=== PATIENT | female | born 1950 | race Caucasian/White ===

== ENCOUNTER 2019-01-31 19:07 | Inpatient (IN) ==
[2019-01-31] MEDS ORDERED: DILTIAZEM 100 MG VIAL.ADD IV STA (19:33)
[2019-01-31] MEDS ORDERED: methylPREDNISolone SOD SUC 125 MG/2 ML VIAL IV STA (19:35)
[2019-01-31] MEDS ORDERED: FUROSEMIDE 100 MG/10 ML VIAL IV STA (19:35)
[2019-01-31] MEDS ORDERED: NITROGLYCERIN 2% OINT 1 INCH/GM PACK TOP STA (19:35)
[2019-01-31] MEDS ORDERED: PIPERACILLIN/TAZOBACTAM 3,375 MG in SODIUM CHLORIDE 0.9% 100 ML IV STA (19:35)
[2019-01-31] MEDS ORDERED: DILTIAZEM 25 MG/5 ML VIAL IV ONE (19:43)
[2019-01-31] MEDS ORDERED: FUROSEMIDE 40 MG/4 ML VIAL ONE (19:48)
[2019-01-31] MEDS ORDERED: FUROSEMIDE 20 MG/2 ML VIAL ONE (19:48)
[2019-01-31 19:55] LABS: Basophils % 0.1 % (0.0-0.8); Hemoglobin 10.9 GM/DL (12.0-16.0); Immature Granulocytes % 4.7 %; Immature Granulocytes Absolute 1.95 #; Lymphocytes # 0.8 10*3/uL (1.4-4.0); Mean Corpuscular HGB Conc 30.3 GM/DL (32-36); Mean Platelet Volume 11.2 FL (9.6-12.0); Monocytes % 4.3 % (1.7-12.7); NRBC # 0.02 10*3/uL; Neutrophils % 88.9 % (38.7-73.9); Platelet Count 358 T/CUMM (130-400); Red Blood Count 3.87 MC/CUMM (3.8-5.5); Red Cell Distribution Width 13.7 % (9.3-17.3)
[2019-01-31 20:00] LABS: White Blood Count 41.3 T/CUMM (4-12)
[2019-01-31] MEDS ORDERED: DILTIAZEM 100 MG VIAL.ADD IV SCH (20:00)
[2019-01-31] MEDS ORDERED: ALBUTEROL NEB SOLN 5 MG/ML 20 ML/BOTTLE RESP TX SCH (20:00)
[2019-01-31] MEDS ORDERED: dilTIAZem Drip 125 MG/125 ML PREMIX IV SCH (20:00)
[2019-01-31 20:04] LABS: INR 1.1; PT Patient Result 11.8 SECS
[2019-01-31 20:20] LABS: Alanine Aminotransferase 14 U/L (13-56); Alkaline Phosphatase 136 U/L (45-117); Aspartate Amino Transferase 16 U/L (0-37); Blood Urea Nitrogen 56 MG/DL (7-18); Osmolality,Calculated 318.8 MOS/KG (273-304); Thyroid Stimulating Hormone 0.598 uIU/ml (0.358-3.74); Total Protein 6.4 G/DL (6.4-8.3); Troponin I < 0.015 NG/ML (0.00-0.045)
[2019-01-31 20:23] LABS: Glucose 647 MG/DL (74-106)
[2019-01-31] MEDS ORDERED: INSULIN REGULAR 100 UNIT/ML IV STA (20:24)
[2019-01-31] MEDS ORDERED: SODIUM CHLORIDE 0.9% 1,000 ML IV STA (20:39)
[2019-01-31] MEDS: dilTIAZem Drip 125 MG/125 ML PREMIX IV SCH (20:40)
[2019-01-31 20:45] LABS: Anisocytosis 1+; Lymphocytes 3 % (20-55); Macrocytosis 1+; Polychromasia 1+; Segmented Neutrophils 92 % (50-85); Total Cells Counted 100
[2019-01-31 20:46] LABS: Acanthocytes Few; Atypical Lymphocytes 1+; Platelet Estimate Normal
[2019-01-31] MEDS ORDERED: SODIUM CHLORIDE 0.9% 2,000 ML IV STA (20:46)
[2019-01-31 21:20] LABS: ABG Base Excess -9.4 MMOL/L (-2.5-2.5); ABG Oxygen Saturation 95.4 % (95-100); ABG PCO2 25.7 MM HG (35-48); ABG PH 7.361 (7.35-7.45); ABG PO2 88.4 MM HG (80-95); ABG TCO2 12.8 MMOL/L (23-27)
[2019-01-31] MEDS ORDERED: METOPROLOL TARTRATE 5 MG/5 ML VIAL IV STA (22:04)
[2019-02-01] MEDS ORDERED: INSULIN REGULAR 100 UNIT/ML IV STA (00:03)
[2019-02-01] MEDS ORDERED: MAGNESIUM SULF RIDER 4 GM in PREMIX 1 EACH IV PRN (00:10)
[2019-02-01] MEDS ORDERED: DEXTROSE 50% 25 GM/50 ML SYRINGE IV PRN ×2 (00:10)
[2019-02-01] MEDS ORDERED: MAGNESIUM SULF RIDER 2 GM in PREMIX 1 EACH IV PRN (00:10)
[2019-02-01] MEDS ORDERED: SODIUM BICARB INJ 100 MEQ in STERILE WATER INJ 400 ML IV PRN (00:10)
[2019-02-01] MEDS ORDERED: SODIUM PHOSPHATE INJ 26.1 MMOL in SODIUM CHLORIDE 0.9% 250 ML IV PRN (00:10)
[2019-02-01] MEDS ORDERED: ACETAMINOPHEN 325 MG TABLET PO PRN (00:10)
[2019-02-01] MEDS ORDERED: METOPROLOL TARTRATE 5 MG/5 ML VIAL IV STA (00:26)
[2019-02-01] MEDS ORDERED: LEVOFLOXACIN INJ 750 MG in PREMIX 1 EACH IV SCH (00:30)
[2019-02-01] MEDS ORDERED: AMIODARONE INJ 150 MG in DEXTROSE 5% 100 ML IV ONE (00:45)
[2019-02-01] MEDS ORDERED: AMIODARONE INJ 450 MG in DEXTROSE 5% 241 ML IV SCH (01:00)
[2019-02-01 01:12] LABS: Apearance,Urine CLEAR (Clear); Bilirubin,Urine Negative (Negative); Blood, Urine Small mg/dL (Negative); Glucose,Urine (UA) >=500 mg/dL (Negative); Hyaline Casts,Urine 16 /LPF (0-3); Ketones,Urine 20 mg/dL (Negative); Mucus,Urine Occasional /LPF (Occasional); Nitrite,Urine Negative (Negative); Protein,Urine Negative; RBC,Urine 1 /HPF (0-4); Squamous Epithelial Cell,Urine Occasional /HPF (0-10); Urine Color Yellow (Yellow); Urine Urobilinogen < 2.0 EU/DL (0.2-1.0); WBC,Urine 1 /HPF (0-6)
[2019-02-01 01:23] LABS: Barbiturates Screen,Urine Negative (Negative); Benzodiazepines Screen,Urine Negative (Negative); Cannabinoid Screen,Urine Negative (Negative); Opiate Screen,Urine Negative (Negative); Phencyclidine Screen,Urine Negative (Negative)
[2019-02-01] MEDS ORDERED: AMIODARONE 450 MG/9 ML VIAL IV ONE (01:34)
[2019-02-01 04:28] LABS: Calcium 8.5 MG/DL (8.5-10.1); Osmolality,Calculated 325.8 MOS/KG (273-304)
[2019-02-01 04:30] LABS: Basophils # 0.2 10*3/uL (0.0-0.2); Basophils % 0.6 % (0.0-0.8); Hematocrit 36.9 VOL% (35.7-47.0); Hemoglobin 11.6 GM/DL (12.0-16.0); Immature Granulocytes % 3.9 %; Immature Granulocytes Absolute 1.32 #; Lymphocytes # 0.7 10*3/uL (1.4-4.0); Mean Corpuscular HGB Conc 31.4 GM/DL (32-36); Mean Corpuscular Volume 91.6 FL (87-102); Mean Platelet Volume 11.1 FL (9.6-12.0); NRBC # 0.03 10*3/uL; Neutrophils % 90.5 % (38.7-73.9); Platelet Count 276 T/CUMM (130-400); Red Blood Count 4.03 MC/CUMM (3.8-5.5); Red Cell Distribution Width 13.7 % (9.3-17.3); White Blood Count 33.7 T/CUMM (4-12)
[2019-02-01 04:43] LABS: Albumin 1.8 G/DL (3.4-5.0); Calcium 7.8 MG/DL (8.5-10.1); Total Protein 5.5 G/DL (6.4-8.3)
[2019-02-01 04:47] LABS: Osmolality,Calculated 328.5 MOS/KG (273-304)
[2019-02-01 05:09] LABS: Band Neutrophils 3 % (0-10); Lymphocytes 4 % (20-55); Platelet Estimate Normal; Segmented Neutrophils 88 % (50-85); Total Cells Counted 100
[2019-02-01] MEDS: INSULIN REGULAR DRIP 100 ML IV SCH ×3 (05:29→21:48)
[2019-02-01] MEDS: CEFTAROLINE 600 MG in SODIUM CHLORIDE 0.9% 100 ML IV SCH ×2 (07:45→22:30)
[2019-02-01 08:03] LABS: Osmolality,Calculated 324.5 MOS/KG (273-304)
[2019-02-01] MEDS: ENOXAPARIN 100 MG/ML SYRINGE SUBCUT SCH ×2 (08:07→20:19)
[2019-02-01] MEDS ORDERED: ENOXAPARIN 40 MG/0.4 ML SYRINGE SUBCUT SCH (09:00)
[2019-02-01] MEDS: SODIUM CHLORIDE 0.9% 1,000 ML IV SCH ×3 (09:07→21:05)
[2019-02-01] MEDS: PANTOPRAZOLE 40 MG VIAL IV SCH (09:15)
[2019-02-01] MEDS: PIPERACILLIN/TAZOBACTAM 3,375 MG in SODIUM CHLORIDE 0.9% 100 ML IV SCH ×2 (09:32→19:44)
[2019-02-01 10:53] LABS: Osmolality,Calculated 321.4 MOS/KG (273-304)
[2019-02-01] MEDS ORDERED: DILTIAZEM 25 MG/5 ML VIAL IV ONE (11:34)
[2019-02-01] MEDS ORDERED: SODIUM CHLORIDE 0.45% 1,000 ML IV SCH (12:20)
[2019-02-01] MEDS ORDERED: DILTIAZEM 50 MG/10 ML VIAL IV STA (14:36)
[2019-02-01] MEDS ORDERED: DIGOXIN 0.5 MG/2 ML AMP IV ONE (14:37)
[2019-02-01] MEDS: POTASSIUM CHLORIDE RIDER 10 MEQ in PREMIX 1 EACH IV PRN ×2 (15:38→21:30)
[2019-02-01 16:23] LABS: Osmolality,Calculated 320.8 MOS/KG (273-304)
[2019-02-01] MEDS ORDERED: DILTIAZEM 50 MG/10 ML VIAL IV ONE (16:41)
[2019-02-01] MEDS: dilTIAZem Drip 125 MG/125 ML PREMIX IV SCH (17:16)
[2019-02-01] MEDS: ALBUTEROL 2.5 MG/3 ML NEB RESP TX PRN (18:28)
[2019-02-01] MEDS: METOPROLOL TARTRATE 50 MG TABLET PO SCH (20:19)
[2019-02-01] MEDS: ASCORBIC ACID 500 MG TABLET PO SCH (20:19)
[2019-02-01 20:32] LABS: Osmolality,Calculated 317.7 MOS/KG (273-304)
[2019-02-01 20:38] LABS: ABG Base Excess 5.2 MMOL/L (-2.5-2.5); ABG HCO3 28.9 MMOL/L (20-26); ABG Oxygen Saturation 94.2 % (95-100); ABG PCO2 38.4 MM HG (35-48); ABG PH 7.483 (7.35-7.45); ABG PO2 72.1 MM HG (80-95); ABG TCO2 23.8 MMOL/L (23-27); Allen Test Positive
[2019-02-01] MEDS: POTASSIUM CHLORIDE 20 MEQ TABLET PO PRN (23:19)
[2019-02-01 23:53] LABS: ABG Base Excess 4.1 MMOL/L (-2.5-2.5); ABG Oxygen Saturation 95.7 % (95-100); ABG PCO2 38.1 MM HG (35-48); ABG PH 7.471 (7.35-7.45); ABG TCO2 24.6 MMOL/L (23-27); Allen Test Positive
[2019-02-02] MEDS: SODIUM CHLORIDE 0.9% 1,000 ML IV SCH ×3 (00:04→12:23)
[2019-02-02] MEDS: PIPERACILLIN/TAZOBACTAM 3,375 MG in SODIUM CHLORIDE 0.9% 100 ML IV SCH ×3 (00:17→17:33)
[2019-02-02] MEDS: POTASSIUM CHLORIDE 20 MEQ TABLET PO PRN ×3 (01:19→17:33)
[2019-02-02] MEDS: POTASSIUM CHLORIDE RIDER 10 MEQ in PREMIX 1 EACH IV PRN ×2 (03:07→04:20)
[2019-02-02 04:03] LABS: Albumin 1.9 G/DL (3.4-5.0); Calcium 8.5 MG/DL (8.5-10.1)
[2019-02-02] MEDS: dilTIAZem Drip 125 MG/125 ML PREMIX IV SCH ×2 (05:30→19:50)
[2019-02-02] MEDS: INSULIN REGULAR DRIP 100 ML IV SCH ×2 (05:45→12:02)
[2019-02-02] MEDS: CEFTAROLINE 600 MG in SODIUM CHLORIDE 0.9% 100 ML IV SCH ×2 (09:37→20:25)
[2019-02-02] MEDS: ENOXAPARIN 100 MG/ML SYRINGE SUBCUT SCH ×2 (09:44→20:26)
[2019-02-02] MEDS: ASCORBIC ACID 500 MG TABLET PO SCH ×2 (09:44→20:26)
[2019-02-02] MEDS: METOPROLOL TARTRATE 50 MG TABLET PO SCH ×2 (09:44→20:26)
[2019-02-02] MEDS: PANTOPRAZOLE 40 MG VIAL IV SCH (09:45)
[2019-02-02] MEDS: LACTATED RINGERS 1,000 ML IV SCH ×2 (12:22→21:00)
[2019-02-02] MEDS ORDERED: GLUCAGON 1 MG VIAL IM PRN (16:36)
[2019-02-02] MEDS ORDERED: DEXTROSE 50% 25 GM/50 ML SYRINGE IV PRN (16:36)
[2019-02-02] MEDS: DILTIAZEM CD 120 MG CAPSULE PO SCH (17:33)
[2019-02-02] MEDS: INSULIN REGULAR 100 UNIT/ML SUBCUT SCH (20:26)
[2019-02-03] MEDS: PIPERACILLIN/TAZOBACTAM 3,375 MG in SODIUM CHLORIDE 0.9% 100 ML IV SCH ×4 (00:39→16:42)
[2019-02-03] MEDS: LACTATED RINGERS 1,000 ML IV SCH ×3 (05:25→22:26)
[2019-02-03] MEDS ORDERED: DILTIAZEM CD 120 MG CAPSULE PO SCH (09:00)
[2019-02-03] MEDS: ENOXAPARIN 100 MG/ML SYRINGE SUBCUT SCH (09:09)
[2019-02-03] MEDS: PANTOPRAZOLE 40 MG VIAL IV SCH (09:09)
[2019-02-03] MEDS: METOPROLOL TARTRATE 50 MG TABLET PO SCH ×2 (09:10→21:15)
[2019-02-03] MEDS: ASCORBIC ACID 500 MG TABLET PO SCH ×2 (09:10→21:15)
[2019-02-03] MEDS: INSULIN REGULAR 100 UNIT/ML SUBCUT SCH ×4 (09:10→21:16)
[2019-02-03] MEDS: DILTIAZEM CD 120 MG CAPSULE PO SCH (09:10)
[2019-02-03] MEDS: CEFTAROLINE 600 MG in SODIUM CHLORIDE 0.9% 100 ML IV SCH ×2 (09:12→21:16)
[2019-02-03 11:19] LABS: Calcium 8.3 MG/DL (8.5-10.1)
[2019-02-03] MEDS: APIXABAN 5 MG TABLET PO SCH (21:15)
[2019-02-03] MEDS: SIMVASTATIN 40 MG TABLET PO SCH (21:15)
[2019-02-04] MEDS: PIPERACILLIN/TAZOBACTAM 3,375 MG in SODIUM CHLORIDE 0.9% 100 ML IV SCH ×3 (00:15→15:54)
[2019-02-04 05:16] LABS: Basophils % 0.1 % (0.0-0.8); Eosinophils % 0.3 % (0.00-10.9); Hematocrit 38.5 VOL% (35.7-47.0); Hemoglobin 11.2 GM/DL (12.0-16.0); Immature Granulocytes % 9.3 %; Lymphocytes # 0.9 10*3/uL (1.4-4.0); Lymphocytes % 8.5 % (21.3-54.2); Mean Corpuscular HGB Conc 29.1 GM/DL (32-36); Mean Corpuscular Volume 98.2 FL (87-102); Mean Platelet Volume 11.4 FL (9.6-12.0); Monocytes % 5.4 % (1.7-12.7); Neutrophils % 76.4 % (38.7-73.9); Platelet Count 160 T/CUMM (130-400); Red Blood Count 3.92 MC/CUMM (3.8-5.5); Red Cell Distribution Width 14.1 % (9.3-17.3); White Blood Count 10.8 T/CUMM (4-12)
[2019-02-04 05:46] LABS: Albumin 1.6 G/DL (3.4-5.0); Calcium 7.7 MG/DL (8.5-10.1); Osmolality,Calculated 299.8 MOS/KG (273-304)
[2019-02-04] MEDS: LACTATED RINGERS 1,000 ML IV SCH ×3 (06:17→19:51)
[2019-02-04] MEDS: POTASSIUM CHLORIDE RIDER 10 MEQ in PREMIX 1 EACH IV PRN ×2 (06:25→11:07)
[2019-02-04 06:39] LABS: Anisocytosis 1+; Band Neutrophils 2 % (0-10); Hypochromasia Slight; Lymphocytes 11 % (20-55); Microcytosis Slight; Platelet Estimate Adequate; Segmented Neutrophils 82 % (50-85); Total Cells Counted 100
[2019-02-04] MEDS: CEFTAROLINE 600 MG in SODIUM CHLORIDE 0.9% 100 ML IV SCH ×2 (09:00→20:40)
[2019-02-04] MEDS: INSULIN REGULAR 100 UNIT/ML SUBCUT SCH ×4 (09:00→20:44)
[2019-02-04] MEDS: APIXABAN 5 MG TABLET PO SCH ×2 (09:01→20:41)
[2019-02-04] MEDS: METOPROLOL TARTRATE 50 MG TABLET PO SCH ×2 (09:01→20:41)
[2019-02-04] MEDS: MAGNESIUM OXIDE 400 MG TABLET PO SCH (09:01)
[2019-02-04] MEDS: ASCORBIC ACID 500 MG TABLET PO SCH ×2 (09:01→20:42)
[2019-02-04] MEDS: DILTIAZEM CD 240 MG CAPSULE PO SCH (09:01)
[2019-02-04] MEDS: CITALOPRAM 20 MG TABLET PO SCH (09:02)
[2019-02-04] MEDS: SIMVASTATIN 40 MG TABLET PO SCH (20:41)
[2019-02-05] MEDS: PIPERACILLIN/TAZOBACTAM 3,375 MG in SODIUM CHLORIDE 0.9% 100 ML IV SCH ×3 (01:29→16:21)
[2019-02-05] MEDS: LACTATED RINGERS 1,000 ML IV SCH ×4 (01:29→20:06)
[2019-02-05 06:16] LABS: Calcium 8.2 MG/DL (8.5-10.1); Osmolality,Calculated 290.3 MOS/KG (273-304)
[2019-02-05 06:33] LABS: Basophils # 0.1 10*3/uL (0.0-0.2); Basophils % 0.4 % (0.0-0.8); Eosinophils # 0.1 10*3/uL (0.0-0.87); Eosinophils % 0.6 % (0.00-10.9); Hematocrit 36.7 VOL% (35.7-47.0); Hemoglobin 10.9 GM/DL (12.0-16.0); Immature Granulocytes % 6.2 %; Immature Granulocytes Absolute 0.78 #; Lymphocytes % 7.5 % (21.3-54.2); Mean Corpuscular HGB Conc 29.7 GM/DL (32-36); Mean Corpuscular Volume 93.6 FL (87-102); Mean Platelet Volume 10.9 FL (9.6-12.0); Monocytes % 4.9 % (1.7-12.7); Neutrophils % 80.4 % (38.7-73.9); Platelet Count 181 T/CUMM (130-400); Red Blood Count 3.92 MC/CUMM (3.8-5.5); Red Cell Distribution Width 13.7 % (9.3-17.3); White Blood Count 12.7 T/CUMM (4-12)
[2019-02-05] MEDS: POTASSIUM CHLORIDE 20 MEQ TABLET PO PRN ×3 (06:37→10:41)
[2019-02-05] MEDS: DILTIAZEM CD 240 MG CAPSULE PO SCH (08:08)
[2019-02-05] MEDS: MAGNESIUM OXIDE 400 MG TABLET PO SCH (08:08)
[2019-02-05] MEDS: METOPROLOL TARTRATE 50 MG TABLET PO SCH ×2 (08:09→21:42)
[2019-02-05] MEDS: ASCORBIC ACID 500 MG TABLET PO SCH ×2 (08:09→21:39)
[2019-02-05] MEDS: CITALOPRAM 20 MG TABLET PO SCH (08:09)
[2019-02-05] MEDS: APIXABAN 5 MG TABLET PO SCH ×2 (08:09→21:38)
[2019-02-05] MEDS: INSULIN REGULAR 100 UNIT/ML SUBCUT SCH ×4 (08:09→21:43)
[2019-02-05] MEDS: CEFTAROLINE 600 MG in SODIUM CHLORIDE 0.9% 100 ML IV SCH ×2 (08:13→21:45)
[2019-02-05] MEDS ORDERED: CETIRIZINE 10 MG TABLET PO PRN (08:38)
[2019-02-05] MEDS ORDERED: INSULIN ASPART PROTAMINE/ASPART 70/30 100 UNIT/ML SUBCUT SCH (09:00)
[2019-02-05] MEDS ORDERED: CALCIUM CARB MAG OXIDE ZINC OX PO SCH (09:00)
[2019-02-05] MEDS: INSULIN ASPART PROTAMINE/ASPART 70/30 100 UNIT/ML SUBCUT SCH ×2 (09:07→16:23)
[2019-02-05] MEDS: MULTIVITAMIN (CENTRUM) TABLET PO SCH (09:07)
[2019-02-05] MEDS: POTASSIUM CHLORIDE 20 MEQ TABLET PO SCH (09:08)
[2019-02-05] MEDS: ASPIRIN EC 81 MG TABLET PO SCH (09:08)
[2019-02-05] MEDS: LISINOPRIL 5 MG TABLET PO SCH ×2 (09:08→21:37)
[2019-02-05 09:22] LABS: Hypochromasia Slight; Lymphocytes 5 % (20-55); Segmented Neutrophils 89 % (50-85); Total Cells Counted 100
[2019-02-05 09:23] LABS: Ovalocytes Slight; Platelet Estimate Adequate; Polychromasia Slight
[2019-02-05] MEDS: SIMVASTATIN 40 MG TABLET PO SCH (21:38)
[2019-02-05] MEDS: CHOLECALCIFEROL 1,000 UNIT TABLET PO SCH (21:40)
[2019-02-05] MEDS: CYANOCOBALAMIN 500 MCG TABLET PO SCH (21:41)
[2019-02-06] MEDS: PIPERACILLIN/TAZOBACTAM 3,375 MG in SODIUM CHLORIDE 0.9% 100 ML IV SCH ×3 (00:18→15:41)
[2019-02-06] MEDS: LACTATED RINGERS 1,000 ML IV SCH ×3 (03:40→21:05)
[2019-02-06 04:19] LABS: Basophils # 0.1 10*3/uL (0.0-0.2); Basophils % 0.3 % (0.0-0.8); Eosinophils # 0.2 10*3/uL (0.0-0.87); Hematocrit 35.5 VOL% (35.7-47.0); Immature Granulocytes % 5.1 %; Immature Granulocytes Absolute 0.91 #; Lymphocytes # 1.7 10*3/uL (1.4-4.0); Lymphocytes % 9.4 % (21.3-54.2); Mean Platelet Volume 11.3 FL (9.6-12.0); Monocytes % 5.7 % (1.7-12.7); Neutrophils % 78.5 % (38.7-73.9); Platelet Count 224 T/CUMM (130-400); Red Blood Count 3.86 MC/CUMM (3.8-5.5); Red Cell Distribution Width 13.7 % (9.3-17.3); White Blood Count 17.9 T/CUMM (4-12)
[2019-02-06 04:31] LABS: Calcium 8.1 MG/DL (8.5-10.1); Osmolality,Calculated 285.8 MOS/KG (273-304)
[2019-02-06] MEDS: ALBUTEROL 2.5 MG/3 ML NEB RESP TX PRN (04:36)
[2019-02-06 04:49] LABS: Anisocytosis Slight; Band Neutrophils 1 % (0-10); Eosinophils 2 % (0-10); Lymphocytes 8 % (20-55); Myelocytes 1 %; Segmented Neutrophils 80 % (50-85); Total Cells Counted 100
[2019-02-06 04:50] LABS: Microcytosis Slight; Ovalocytes Slight
[2019-02-06 04:51] LABS: Platelet Estimate Normal
[2019-02-06] MEDS: POTASSIUM CHLORIDE 20 MEQ TABLET PO PRN ×4 (06:31→13:30)
[2019-02-06] MEDS: INSULIN REGULAR 100 UNIT/ML SUBCUT SCH ×4 (09:12→22:08)
[2019-02-06] MEDS: CEFTAROLINE 600 MG in SODIUM CHLORIDE 0.9% 100 ML IV SCH ×2 (09:13→21:04)
[2019-02-06] MEDS: INSULIN ASPART PROTAMINE/ASPART 70/30 100 UNIT/ML SUBCUT SCH ×2 (09:13→17:17)
[2019-02-06] MEDS: ASCORBIC ACID 500 MG TABLET PO SCH ×2 (09:15→21:13)
[2019-02-06] MEDS: POTASSIUM CHLORIDE 20 MEQ TABLET PO SCH (09:15)
[2019-02-06] MEDS: ASPIRIN EC 81 MG TABLET PO SCH (09:16)
[2019-02-06] MEDS: MULTIVITAMIN (CENTRUM) TABLET PO SCH (09:16)
[2019-02-06] MEDS: DILTIAZEM CD 240 MG CAPSULE PO SCH (09:16)
[2019-02-06] MEDS: APIXABAN 5 MG TABLET PO SCH ×2 (09:16→21:14)
[2019-02-06] MEDS: METOPROLOL TARTRATE 50 MG TABLET PO SCH ×2 (09:16→21:14)
[2019-02-06] MEDS: MAGNESIUM OXIDE 400 MG TABLET PO SCH (09:16)
[2019-02-06] MEDS: CITALOPRAM 20 MG TABLET PO SCH (09:16)
[2019-02-06] MEDS: LISINOPRIL 5 MG TABLET PO SCH ×2 (09:16→21:07)
[2019-02-06] MEDS: CHOLECALCIFEROL 1,000 UNIT TABLET PO SCH (21:11)
[2019-02-06] MEDS: CYANOCOBALAMIN 500 MCG TABLET PO SCH (21:13)
[2019-02-06] MEDS: SIMVASTATIN 40 MG TABLET PO SCH (21:14)
[2019-02-07] MEDS: PIPERACILLIN/TAZOBACTAM 3,375 MG in SODIUM CHLORIDE 0.9% 100 ML IV SCH ×3 (01:33→15:25)
[2019-02-07 05:41] LABS: Calcium 8.2 MG/DL (8.5-10.1)
[2019-02-07] MEDS: LACTATED RINGERS 1,000 ML IV SCH ×2 (05:51→10:24)
[2019-02-07] MEDS: MULTIVITAMIN (CENTRUM) TABLET PO SCH (09:15)
[2019-02-07] MEDS: POTASSIUM CHLORIDE 20 MEQ TABLET PO SCH (09:15)
[2019-02-07] MEDS: ASCORBIC ACID 500 MG TABLET PO SCH ×2 (09:15→21:05)
[2019-02-07] MEDS: ASPIRIN EC 81 MG TABLET PO SCH (09:15)
[2019-02-07] MEDS: DILTIAZEM CD 240 MG CAPSULE PO SCH (09:15)
[2019-02-07] MEDS: METOPROLOL TARTRATE 50 MG TABLET PO SCH ×2 (09:15→21:03)
[2019-02-07] MEDS: APIXABAN 5 MG TABLET PO SCH ×2 (09:15→21:04)
[2019-02-07] MEDS: CITALOPRAM 20 MG TABLET PO SCH (09:15)
[2019-02-07] MEDS: MAGNESIUM OXIDE 400 MG TABLET PO SCH (09:16)
[2019-02-07] MEDS: CEFTAROLINE 600 MG in SODIUM CHLORIDE 0.9% 100 ML IV SCH ×2 (09:16→21:05)
[2019-02-07] MEDS: LISINOPRIL 5 MG TABLET PO SCH ×2 (09:16→21:03)
[2019-02-07] MEDS: INSULIN REGULAR 100 UNIT/ML SUBCUT SCH ×4 (09:17→23:06)
[2019-02-07] MEDS: INSULIN ASPART PROTAMINE/ASPART 70/30 100 UNIT/ML SUBCUT SCH ×2 (09:37→17:04)
[2019-02-07] MEDS ORDERED: MAGNESIUM SULF RIDER 2 GM in PREMIX 1 EACH IV ONE (15:05)
[2019-02-07] MEDS ORDERED: POTASSIUM CHLORIDE 20 MEQ TABLET PO ONE (15:05)
[2019-02-07] MEDS: CYANOCOBALAMIN 500 MCG TABLET PO SCH (21:02)
[2019-02-07] MEDS: CHOLECALCIFEROL 1,000 UNIT TABLET PO SCH (21:03)
[2019-02-07] MEDS: SIMVASTATIN 40 MG TABLET PO SCH (21:05)
[2019-02-08] MEDS: PIPERACILLIN/TAZOBACTAM 3,375 MG in SODIUM CHLORIDE 0.9% 100 ML IV SCH ×3 (00:51→16:56)
[2019-02-08] MEDS: LISINOPRIL 5 MG TABLET PO SCH ×2 (09:53→21:46)
[2019-02-08] MEDS: ASCORBIC ACID 500 MG TABLET PO SCH ×2 (09:53→21:46)
[2019-02-08] MEDS: ASPIRIN EC 81 MG TABLET PO SCH (09:53)
[2019-02-08] MEDS: MULTIVITAMIN (CENTRUM) TABLET PO SCH (09:53)
[2019-02-08] MEDS: CITALOPRAM 20 MG TABLET PO SCH (09:53)
[2019-02-08] MEDS: METOPROLOL TARTRATE 50 MG TABLET PO SCH ×2 (09:54→21:46)
[2019-02-08] MEDS: MAGNESIUM OXIDE 400 MG TABLET PO SCH (09:54)
[2019-02-08] MEDS: DILTIAZEM CD 240 MG CAPSULE PO SCH (09:54)
[2019-02-08] MEDS: APIXABAN 5 MG TABLET PO SCH ×2 (09:54→21:46)
[2019-02-08] MEDS: POTASSIUM CHLORIDE 20 MEQ TABLET PO SCH (09:55)
[2019-02-08] MEDS: INSULIN ASPART PROTAMINE/ASPART 70/30 100 UNIT/ML SUBCUT SCH ×2 (09:56→16:58)
[2019-02-08] MEDS: INSULIN REGULAR 100 UNIT/ML SUBCUT SCH ×4 (09:59→20:53)
[2019-02-08] MEDS: CEFTAROLINE 600 MG in SODIUM CHLORIDE 0.9% 100 ML IV SCH (10:50)
[2019-02-08] MEDS: CHOLECALCIFEROL 1,000 UNIT TABLET PO SCH (21:46)
[2019-02-08] MEDS: CYANOCOBALAMIN 500 MCG TABLET PO SCH (21:46)
[2019-02-08] MEDS: SIMVASTATIN 40 MG TABLET PO SCH (21:46)
[2019-02-09] MEDS: INSULIN REGULAR 100 UNIT/ML SUBCUT SCH ×2 (08:06→11:53)
[2019-02-09] MEDS: INSULIN ASPART PROTAMINE/ASPART 70/30 100 UNIT/ML SUBCUT SCH (08:37)
[2019-02-09] MEDS: ASPIRIN EC 81 MG TABLET PO SCH (08:38)
[2019-02-09] MEDS: APIXABAN 5 MG TABLET PO SCH (08:38)
[2019-02-09] MEDS: POTASSIUM CHLORIDE 20 MEQ TABLET PO SCH (08:38)
[2019-02-09] MEDS: MULTIVITAMIN (CENTRUM) TABLET PO SCH (08:38)
[2019-02-09] MEDS: ASCORBIC ACID 500 MG TABLET PO SCH (08:38)
[2019-02-09] MEDS: DILTIAZEM CD 240 MG CAPSULE PO SCH (08:38)
[2019-02-09] MEDS: LISINOPRIL 5 MG TABLET PO SCH (08:39)
[2019-02-09] MEDS: METOPROLOL TARTRATE 50 MG TABLET PO SCH (08:39)
[2019-02-09] MEDS: CITALOPRAM 20 MG TABLET PO SCH (08:39)
[2019-02-09] MEDS: MAGNESIUM OXIDE 400 MG TABLET PO SCH (08:39)
[2019-02-09 12:16] VITALS: BP 131/60
== END 2019-02-09 15:09 | DRG 871 ==
LOC: EDUNIT# → EDBD → N.ED 19:07 → N.EDINP 02-01 00:11 → SUATTDRO 02-01 00:11 → N.EDINP 02-01 15:53 → N.CC 02-01 15:54 → N.TELES 02-04 10:55
PROVIDERS: ADMIT Internal Medicine Geriatric Medicine

== ENCOUNTER 2019-05-02 06:18 | Inpatient (IN) ==
[2019-04-25 17:21] LABS: Basophils % 0.4 % (0.0-0.8); Eosinophils # 0.4 10*3/uL (0.0-0.87); Eosinophils % 4.1 % (0.00-10.9); Hematocrit 37.3 VOL% (35.7-47.0); Hemoglobin 11.3 GM/DL (12.0-16.0); Immature Granulocytes % 0.6 %; Immature Granulocytes Absolute 0.06 #; Lymphocytes # 1.7 10*3/uL (1.4-4.0); Lymphocytes % 16.4 % (21.3-54.2); Mean Corpuscular HGB Conc 30.3 GM/DL (32-36); Mean Corpuscular Volume 85.7 FL (87-102); Neutrophils % 70.5 % (38.7-73.9); Platelet Count 240 T/CUMM (130-400); Red Blood Count 4.35 MC/CUMM (3.8-5.5); White Blood Count 10.3 T/CUMM (4-12)
[2019-04-25 17:39] LABS: Calcium 8.8 MG/DL (8.5-10.1); Osmolality,Calculated 293.1 MOS/KG (273-304)
[~2019-05-02 06:18] MED LIST: LACTATED RINGERS 1,000 ML IV SCH
[2019-05-02] MEDS ORDERED: ERTAPENEM 1,000 MG in SODIUM CHLORIDE 0.9% 100 ML IV ONE (06:30)
[2019-05-02] MEDS ORDERED: ALVIMOPAN 12 MG CAPSULE PO ONE (06:30)
[2019-05-02] MEDS ORDERED: DIAZEPAM 5 MG TABLET PO ONE (08:08)
[2019-05-02] MEDS ORDERED: FAMOTIDINE 20 MG TABLET PO ONE (08:08)
[2019-05-02] MEDS ORDERED: DIAZEPAM 5 MG TABLET ONE (08:21)
[2019-05-02] MEDS ORDERED: ALVIMOPAN 12 MG CAPSULE ONE (08:22)
[2019-05-02] MEDS ORDERED: ERTAPENEM 1,000 MG VIAL ONE (08:22)
[2019-05-02] MEDS ORDERED: FAMOTIDINE 20 MG TABLET ONE (08:22)
[2019-05-02] MEDS ORDERED: BUPIVACAINE MPF 0.25% /EPI 30 ML VIAL ONE (09:15)
[2019-05-02] MEDS ORDERED: TISSUE ADHESIVE 1 EACH APPLICATOR TOP ONE (09:15)
[2019-05-02] MEDS ORDERED: LIDOCAINE 1% 20 ML VIAL ONE (09:16)
[2019-05-02] MEDS ORDERED: INDOCYANINE GREEN 25 MG VIAL IV ONE (11:17)
[2019-05-02] MEDS ORDERED: SUGAMMADEX 200 MG/2 ML VIAL IV ONE (13:26)
[2019-05-02] MEDS ORDERED: MIDAZOLAM 2 MG/2 ML VIAL ONE (13:51)
[2019-05-02] MEDS ORDERED: SEVOFLURANE 1 UNIT/15 MINUTE INH ONE (13:51)
[2019-05-02] MEDS ORDERED: PROPOFOL 200 MG/20 ML VIAL IV ONE (13:51)
[2019-05-02] MEDS ORDERED: ONDANSETRON 4 MG/2 ML VIAL ONE ×2 (13:55→14:00)
[2019-05-02] MEDS ORDERED: ePHEDrine 50 MG/ML AMP ONE (13:55)
[2019-05-02] MEDS ORDERED: GLYCOPYRROLATE 0.4 MG/2 ML VIAL ONE (13:55)
[2019-05-02] MEDS ORDERED: fentaNYL 100 MCG/2 ML VIAL ONE (13:55)
[2019-05-02] MEDS ORDERED: PHENYLEPHRINE 1 MG/10 ML SYRINGE IV ONE (13:55)
[2019-05-02] MEDS ORDERED: LACTATED RINGERS 1,000 ML IV ONE (13:56)
[2019-05-02] MEDS ORDERED: ROCURONIUM 100 MG/10 ML VIAL IV ONE (13:56)
[2019-05-02] MEDS ORDERED: NEOSTIGMINE 10 MG/10 ML VIAL ONE (13:56)
[2019-05-02] MEDS ORDERED: ROPIVACAINE 0.5% 30 ML VIAL ONE (13:57)
[2019-05-02] MEDS ORDERED: HYDROmorphone 2 MG/1 ML VIAL IV PRN ×2 (14:07→16:24)
[2019-05-02] MEDS ORDERED: ONDANSETRON 4 MG/2 ML VIAL IV PRN ×2 (14:07→16:24)
[2019-05-02] MEDS ORDERED: METOPROLOL TARTRATE 5 MG/5 ML VIAL IV ONE ×2 (14:27→15:03)
[2019-05-02] MEDS ORDERED: METOCLOPRAMIDE 10 MG/2 ML VIAL IM ONE (14:28)
[2019-05-02] MEDS ORDERED: METOCLOPRAMIDE 10 MG/2 ML VIAL ONE (14:40)
[2019-05-02] MEDS ORDERED: hydrALAZINE 20 MG/1 ML VIAL ONE (15:24)
[2019-05-02] MEDS ORDERED: hydrALAZINE 20 MG/1 ML VIAL IV ONE ×2 (15:25→15:42)
[2019-05-02] MEDS ORDERED: HYDROmorphone 2 MG/1 ML VIAL ONE (15:53)
[2019-05-02] MEDS ORDERED: GLUCAGON 1 MG VIAL IM PRN (16:24)
[2019-05-02] MEDS ORDERED: PROMETHAZINE 25 MG/1 ML VIAL IM PRN (16:24)
[2019-05-02] MEDS ORDERED: DEXTROSE 50% 25 GM/50 ML VIAL IV PRN (16:24)
[2019-05-02] MEDS: LACTATED RINGERS 1,000 ML IV SCH (17:30)
[2019-05-02] MEDS: KETOROLAC 15 MG/1 ML VIAL IV SCH ×2 (17:31→22:05)
[2019-05-02] MEDS: INSULIN REGULAR 100 UNIT/ML SUBCUT SCH ×2 (17:31→22:03)
[2019-05-02 18:56] LABS: Basophils # 0.1 10*3/uL (0.0-0.2); Basophils % 0.2 % (0.0-0.8); Hematocrit 36.5 VOL% (35.7-47.0); Hemoglobin 11.5 GM/DL (12.0-16.0); Immature Granulocytes % 0.6 %; Immature Granulocytes Absolute 0.13 #; Lymphocytes # 0.4 10*3/uL (1.4-4.0); Lymphocytes % 1.8 % (21.3-54.2); Mean Corpuscular HGB Conc 31.5 GM/DL (32-36); Mean Corpuscular Volume 83.9 FL (87-102); Mean Platelet Volume 9.5 FL (9.6-12.0); Monocytes % 2.8 % (1.7-12.7); Neutrophils % 94.6 % (38.7-73.9); Platelet Count 245 T/CUMM (130-400); Red Blood Count 4.35 MC/CUMM (3.8-5.5); Red Cell Distribution Width 14.3 % (9.3-17.3); White Blood Count 22.2 T/CUMM (4-12)
[2019-05-02 19:15] LABS: Calcium 8.6 MG/DL (8.5-10.1); Osmolality,Calculated 294.3 MOS/KG (273-304)
[2019-05-02] MEDS ORDERED: METOPROLOL TARTRATE 25 MG TABLET PO SCH (21:00)
[2019-05-02 21:40] LABS: Band Neutrophils 1 % (0-10); Lymphocytes 4 % (20-55); Platelet Estimate Normal; Segmented Neutrophils 92 % (50-85); Total Cells Counted 100
[2019-05-02] MEDS: ALVIMOPAN 12 MG CAPSULE PO SCH (22:03)
[2019-05-03] MEDS: LACTATED RINGERS 1,000 ML IV SCH (01:01)
[2019-05-03 04:54] LABS: Basophils % 0.2 % (0.0-0.8); Hematocrit 34.8 VOL% (35.7-47.0); Hemoglobin 10.7 GM/DL (12.0-16.0); Immature Granulocytes % 0.9 %; Immature Granulocytes Absolute 0.17 #; Lymphocytes # 0.8 10*3/uL (1.4-4.0); Lymphocytes % 3.8 % (21.3-54.2); Mean Corpuscular HGB Conc 30.7 GM/DL (32-36); Mean Corpuscular Volume 85.3 FL (87-102); Mean Platelet Volume 9.5 FL (9.6-12.0); Monocytes % 6.6 % (1.7-12.7); Neutrophils % 88.5 % (38.7-73.9); Platelet Count 268 T/CUMM (130-400); Red Blood Count 4.08 MC/CUMM (3.8-5.5); Red Cell Distribution Width 14.4 % (9.3-17.3)
[2019-05-03] MEDS: KETOROLAC 15 MG/1 ML VIAL IV SCH ×2 (04:54→11:15)
[2019-05-03 05:10] LABS: Calcium 8.6 MG/DL (8.5-10.1); Osmolality,Calculated 290.4 MOS/KG (273-304)
[2019-05-03 05:37] LABS: Band Neutrophils 3 % (0-10); Lymphocytes 4 % (20-55); Segmented Neutrophils 90 % (50-85); Total Cells Counted 100
[2019-05-03 05:38] LABS: Anisocytosis 1+; Platelet Estimate Adequate
[2019-05-03] MEDS ORDERED: ENOXAPARIN 40 MG/0.4 ML SYRINGE SUBCUT SCH (07:27)
[2019-05-03] MEDS ORDERED: METOPROLOL TARTRATE 50 MG TABLET PO SCH (07:30)
[2019-05-03] MEDS: INSULIN REGULAR 100 UNIT/ML SUBCUT SCH ×2 (08:26→12:37)
[2019-05-03] MEDS: ALVIMOPAN 12 MG CAPSULE PO SCH (08:28)
[2019-05-03] MEDS ORDERED: FUROSEMIDE 20 MG TABLET PO SCH (09:00)
[2019-05-03] MEDS ORDERED: CITALOPRAM 20 MG TABLET PO SCH (09:00)
[2019-05-03] MEDS ORDERED: CHOLECALCIFEROL 5,000 UNIT TABLET PO SCH (09:00)
[2019-05-03] MEDS ORDERED: ASPIRIN 325 MG TABLET PO SCH (09:00)
[2019-05-03] MEDS ORDERED: ASCORBIC ACID 500 MG TABLET PO SCH (09:00)
[2019-05-03] MEDS ORDERED: SIMVASTATIN 40 MG TABLET PO SCH (09:00)
[2019-05-03] MEDS ORDERED: FEXOFENADINE 180 MG TABLET PO SCH (09:00)
[2019-05-03] MEDS ORDERED: DILTIAZEM CD 240 MG CAPSULE PO SCH (09:00)
[2019-05-03 12:21] VITALS: BP 161/75
== END 2019-05-03 12:41 | disposition home or self-care (01) | DRG 331 ==
LOC: N.SDSINP 06:18 → N.PREADM 06:18 → EDSTATUS 10:30 → N.3E 16:19 → N.PREADM 05-03 12:41 → N.3E 05-04 09:02
PROVIDERS: ADMIT Surgery; ATTEND Surgery